=== PATIENT | male | born 1950 | race Caucasian/White ===

== ENCOUNTER → 2018-11-20 12:42 | Outpatient (BNVA) | payer MEDICARE, SELFPAY | PROVIDERS: Referring Provider Family Medicine; Visit Provider Nurse Practitioner Gerontology | DX: R39.12 Poor urinary stream; R39.11 Hesitancy of micturition; N40.3 Nodular prostate with lower urinary tract symptoms; R97.20 Elevated prostate specific antigen [PSA] | CPT/HCPCS: 99204 ==

== ENCOUNTER 2020-12-31 07:25 | Day surgery (SDC) | payer MEDICARE, SELFPAY ==
--- NOTE | 2020-12-31 06:17 | W.ANESPRE ---
General Info Date of Service Date Performed: 12/31/20 Height: 5 ft 10.5 in Weight: 84.368 kg Body Mass Index (BMI): 26.3 Surgical Procedure: Operation Date: 12/31/20 09:40 Proposed Procedures Side Surgeon p Cataract Extraction with IOL Implant Left Raul Glasgow MD Meds Allergies and Home Medications Allergies Allergy/AdvReac Type Severity Reaction Status Date / Time cyclobenzaprine AdvReac urinary Verified 12/31/20 07:46 [From Flexeril] retention per [facility] note Home Medication Medication Instructions Recorded albuterol sulfate 90 mcg/actuation 1 puff IH Q6H PRN 11/20/18 aerosol inhaler atorvastatin 10 mg tablet 10 mg PO DAILY 11/20/18 finasteride 5 mg PO DAILY 12/28/20 tamsulosin 0.8 mg PO PC 12/28/20 Current Visit Medications: Current Medications Generic Name Dose Route Start Last Admin Trade Name Freq PRN Reason Stop Dose Admin Acetaminophen 1,000 mg 12/31/20 06:00 Acetaminophen 500 Mg Tab PO Q4H PRN PRN Miscellaneous Medication 0 ml 12/31/20 06:00 Prednisolone 1%, Moxifloxacin 0.5%, Nepafenac 0.1% 5ml Btl OS DIRECTED [facility] Miscellaneous Medication 0 ml 12/31/20 06:00 Tropicam./Phenyleph. (1/2.5%) 5 Ml Btl OS DIRECTED [facility] Tetracaine HCl 0 ml 12/31/20 06:00 Tetracaine 0.5% 4 Ml Btl OS DIRECTED [facility] Active Problems Active Problems: Problem Status Onset Code Posterior subcapsular age-related cataract of left eye H25.042 Cortical cataract of left eye H26.9 Nuclear sclerotic cataract of left eye H25.12 BPH loc w urin obs/LUTS N40.1 Elevated PSA R97.20 Medical History Medical History Allergic rhinitis Bilateral inguinal hernia BPH (benign prostatic hyperplasia) [place] lesion of lung COPD (chronic obstructive pulmonary disease) Diffuse spasm of esophagus Edema GERD (gastroesophageal reflux disease) Headache Hx of fracture of clavicle per pt. has metal plate in place Hyperlipemia Lumbosacral radiculopathy Nicotine dependence Plantar fasciitis Primary osteoarthritis of ankle Retention of urine Varicose veins of lower extremity Surgical History Surgical History Hx of hernia repair Tobacco Smoking/Tobacco Use Status: Former Tobacco Use Alcohol Alcohol Intake: never Substance Use Substance use type: does not use Vital Signs and Lab Results Lab Results Blood Type / Crossmatch: No Data to Display Complete Blood Count: No Data to Display Complete Metabolic Panel: No Data to Display Liver Function Panel: No Data to Display Coagulation Panel: No Data to Display Cardiac Panel: No Data to Display Arterial Blood Gas: No Data to Display Venous Blood Gas: No Data to Display Pancreas Panel: No Data to Display Thyroid Panel: No Data to Display Infectious Disease: No Data to Display Blood Cultures: No Data to Display Toxicology Panel: No Data to Display Anesthesia Assessment and Plan Anesthesia History Personal History: No History of Anesthesia Complications Family History: No Family History of Anesthesia Complications Exercise Tolerance Exercise Tolerance: Metabolic Equivalents>4 Cardiac & Pulmonary Exam Cardiac Exam: Normal S1/S2 Heart Sounds Pulmonary Exam: Clear Bilateral Breath Sounds Airway Exam Known Difficult Airway: No Mallampati Class: 3 Mouth Opening: Normal (> 3cm) Thyromental Distance: Greater than 3 cm Neck Range of Motion: Limited ROM Neck Circumference: Normal Teeth Condition: Normal Dentition ASA Classification ASA Score: ASA 2 Emergency Case?: No NPO Status NPO Status: NPO Clears >2 hours, Solids >8 hours Anesthesia Plan Resuscitation Status: Full Code Anesthesia Technique: MAC Anesthesia Airway Planned: Natural Airway Monitors Used: Standard Monitors Preoperative Comments:: Discussed mko vs no mko. Would like no mko.
[2020-12-31] MEDS: Tropicam./Phenyleph. (1/2.5%) 5 ML BTL OS ×3 (07:42→07:55)
[2020-12-31 07:48] VITALS: BP 117/76; PULSE 60; RESP 20; TEMP 36.4; O2SAT 97
[2020-12-31 07:57] VITALS: BMI 26.3
[2020-12-31] MEDS: Povidone-Iodine Ophth 30 ML BTL (08:40)
[2020-12-31] MEDS: Lidocaine 2% Jelly 6 ML SYR (08:42)
[2020-12-31] MEDS: Lidocaine 1% Pres-Free 5 ML VIAL (08:43)
[2020-12-31] MEDS: Duovisc Viscoelastic System EACH 1 EACH (08:44)
[2020-12-31] MEDS: Balanced Salt Soln.-PLUS 500 ML BAG (08:44)
[2020-12-31] MEDS: Tetracaine 0.5% 4 ML BTL OS (08:44)
[2020-12-31] MEDS: Trypan Blue 0.06% 0.5 ML SYR (08:46)
[2020-12-31 09:16] VITALS: BP 125/64; PULSE 64; RESP 16; TEMP 36.2; O2SAT 97
--- NOTE | 2020-12-31 09:18 | W.PM.DSUDISC ---
Discharge Plan Disposition Patient Disposition: HOME Condition: Good Discharge Details Reason For Visit: CATARACT Attending Provider: Raul Glasgow Primary Care Provider: Zena Steiner Home Meds and New Rx's Prescriptions: No Action albuterol sulfate [ProAir HFA] 90 mcg/actuation HFA aerosol inhaler 1 puff IH Q6H PRNRF: 0 atorvastatin 10 mg tablet 10 mg PO DAILY RF: 0 tamsulosin 0.4 mg capsule 0.8 mg PO PC RF: 0 finasteride 5 mg tablet 5 mg PO DAILY RF: 0 Discharge Instructions Stand Alone Forms: Post-op Topical Cataract, Oli Vaughn (DSU) Discharge Orders Discharge Orders: Discharge Order (Routine); Ordered 12/31/20 Ordered By: Raul Glasgow DS: Diagnosis Discharge Diagnosis (1) Posterior subcapsular age-related cataract of left eye: Status: Resolved (2) Cortical cataract of left eye: Status: Resolved (3) Nuclear sclerotic cataract of left eye: Status: Resolved
--- NOTE | 2020-12-31 09:19 | ROE_ITS ---
Date of service: 12/31/20 Time of Service: 09:19 Operative Note Operative Note DATE OF PROCEDURE: 12/31/20 PRE-OP DIAGNOSIS: Nuclear/cortical/posterior subcapsular cataract, left eye Poorly dilating pupil, left eye Poor red reflex, left eye PROCEDURE: Cataract extraction using phacoemulsification with intraocular lens implant, left eye, with pupillary dilation using Malyugin Ring and capsular staining using Vision Blue SURGEON: Raul Glasgow ANESTHESIA TYPE: Local By Surgeon and MAC Refer to Anesthesia Record ESTIMATED BLOOD LOSS: 0 PATHOLOGY: none sent COMPLICATIONS: None Patient was transported to: same day Patient's condition: stable Implants: Eliseo and Eliseo / [employer] Tecnis [id number] Indications: Progressive decreased vision due to cataract, left eye Procedure Description: CATARACT SURGERY OPERATIVE REPORT PREOPERATIVE DIAGNOSIS: 1. Nuclear/cortical/posterior subcapsular cataract, left eye 2. Poorly dilating pupil, left eye 3. Poor red reflex, left eye POSTOPERATIVE DIAGNOSIS: Same OPERATION: 1. Cataract extraction using phacoemulsification with posterior chamber intraocular lens implant, left eye. 2. Pupillary dilation and iris stabilization using Malyugin Ring 3. Capsular staining with VIsion Blue IOL: IOL Front Office Attendant/Model: Eliseo & Eliseo / ESTEBAN Tecnis [id number] IOL Power: + 22.0 diopters IOL Serial Number: [id number] Optic Diameter: 6.0mm Haptic/Overall Diameter: 13.0mm PHACO INFO: Jason [employer]urion Vision System with OZil and Active Fluidics Cumulative Dispersed Energy (CDE): 12.50 seconds SURGEON: Raul Glasgow MD, LAKSHMI ANESTHESIA: Monitored Anesthesia Care (MAC), with local sub-tenon's anesthetic infiltration COMPLICATIONS: None SPECIMENS: None INDICATIONS FOR PROCEDURE: The patient is a 70-year-old gentleman with history of diminished visual acuity in his left eye. He is noted to have a rather dense nuclear/cortical/posterior subcapsular cataract with visual acuity of 2400. The option of cataract surgery was offered to the patient and he felt he was symptomatic enough that he wished to proceed. PROCEDURE: The correct surgical eye was identified and marked as the left eye and the pupil was dilated in the preoperative area using mydriatics, cyc loplegics, and NSAIDS (except in aspirin allergic patients). The dilated pupil size was 5.0 mm. He elected to proceed without oral sedation. The patient was brought to the operating room where cardiopulmonary monitoring was instituted and surgical time-out was performed, confirming the correct operative eye and IOL power. Topical anesthesia was administered and ophthalmic povidone-iodine 5% was instilled into the conjunctival fornices. Lidocaine gel was applied to the cornea and the lisandra-ocular area was prepped with Betadine 10% solution and draped in the usual sterile fashion for intraocular surgery, including an aperture drape. A Tegaderm transparent film dressing was cut in half and used to cover the lashes and lid margins. Care was taken to sequester the lashes and lid margins under the Tegaderm dressing. A lid speculum was placed between the lids of the operative eye and the Kierra-Gretchen operating microscope was maneuvered into position. Jackelyn scissors were then used to make a conjunctival buttonhole approximately 6mm posterior to the limbus in the inferonasal quadrant. Blunt dissection was carried out to expose bare sclera, and a blunt-tipped sub-tenon?s anesthesia cannula was introduced and passed posteriorly along the globe where non- preserved plain lidocaine was injected into posterior sub-Tenon?s space. A sideport knife was used to make a paracentesis port superiorly/superiortemporally. Intraocular phenylephrine/lidocaine was injected into the anterior chamber. Air was then injected into anterior chamber, followed by Vision Blue, which was painted over the anterior capsule and then irrigated out with BSS. The anterior chamber was then filled with viscoelastic. A 2.4mm keratome knife was used to create a half-thickness groove at the limbus and then to construct a three-plane near-clear corneal tunnel extending 2.0mm into clear cornea temporally. A 7.0 mm Malyugin Ring was then inserted into the pupillary space and engaged with the Kuglen hook. A flap was raised on the anterior capsule and capsulorhexis forceps were used to complete a continuous curvilinear capsulorhexis of 5.0 mm. Balanced salt solution was then used to perform cortical cleaving hydrodissection and nuclear hydrodelineation until the lens could be freely rotated within the capsular bag. The lens nucleus was then disassembled and removed within the capsular bag and iris plane using phacoemulsification. Residual cortical material was removed using the 45-degree angled silicone I/A tip with 0.3mm port. The posterior capsule was carefully polished to remove as much residual lens epithelial cells as safely possible. The capsular bag was then inflated and the anterior chamber deepened with viscoelastic. The lens implant described above was inserted into the capsular bag using the [employer] [place] Injector. A Kuglen hook was used to dial the IOL into position. The Malyugin Ring was removed in the reverse order of its insertion. Residual viscoelastic was then removed first from posterior to the IOL, then from the anterior chamber using the I/A handpiece. The lens implant was noted to center nicely within the capsular bag. The incisions were stromally hydrated, and the anterior chamber was reformed using BSS. Then 0.5cc of moxifloxacin 1.0mg/ml were injected into the capsular bag and anterior chamber. The incisions were checked with a Weck spear and found to be secure. Several drops of ophthalmic povidone-iodine 5% were then applied to the eye followed by two drops of Imprimis combination prednisolone/moxifloxacin/nepafenac solution. The drapes were removed and a clear plastic protective eye shield was placed over the eye. The patient was then returned to Same Day Surgery in stable condition.
--- NOTE | 2020-12-31 09:22 | W.ANESPOSTOP ---
Postoperative Evaluation Date, Time and Location Date Performed: 12/31/20 Time Performed: 09:32 Patient Location: Day Surgery Unit Vital Signs Most Recent Imported Vital Signs: Most Recent Vital Signs Temp Pulse Resp BP Pulse Ox 36.2 C L 64 16 125/64 97 12/31/20 09:16 12/31/20 09:16 12/31/20 09:16 12/31/20 09:16 12/31/20 09:16 Temp Pulse Resp BP Pulse Ox 36.4 C L 60 20 117/76 97 12/31/20 07:48 12/31/20 07:48 12/31/20 07:48 12/31/20 07:48 12/31/20 07:48 Pain Score Most Recent Pain Score: Most Recent Pain Score Pain Level 0 12/31/20 07:48 Assessment Mental Status: Awake (Alert & Oriented to Patient Baseline) Airway and Respiratory Function: Patent airway with normal (patient baseline) respiratory exam Cardiovascular Function: Hemodynamically Stable Hydration Status: Adequately Hydrated Nausea & Vomiting: No Nausea or Vomiting Pain: Pt. Denies Any Pain Peripheral Nerve Block: Patient did not receive a nerve block
== END 2020-12-31 09:35 | disposition home or self-care (01) ==
PROVIDERS: PCP Nurse Practitioner Family; Visit Provider Ophthalmology
PROC: (CPT 66982; principal; 2020-12-31 09:30)
DX: H25.042 Posterior subcapsular polar age-related cataract, left eye (principal); H57.03 Miosis
CPT/HCPCS: 66982; V2632

== ENCOUNTER 2021-01-14 09:20 | Day surgery (SDC) | payer MEDICARE, SELFPAY ==
[2021-01-14 09:30] VITALS: BP 127/75; PULSE 54; RESP 17; TEMP 36.6; O2SAT 98
[2021-01-14] MEDS: Tropicam./Phenyleph. (1/2.5%) 5 ML BTL OD ×3 (09:47→09:56)
--- NOTE | 2021-01-14 10:02 | W.ANESPRE ---
General Info Date of Service Date Performed: 01/14/21 Height: 5 ft 10.5 in Weight: 85.2 kg Body Mass Index (BMI): 26.5 Surgical Procedure: Operation Date: 01/14/21 11:25 Proposed Procedures Side Surgeon p Cataract Extraction with IOL Implant Right Raul Glasgow MD Meds Allergies and Home Medications Allergies Allergy/AdvReac Type Severity Reaction Status Date / Time cyclobenzaprine AdvReac urinary Verified 01/14/21 09:37 [From Flexeril] retention per [facility] note Home Medication Medication Instructions Recorded albuterol sulfate 90 mcg/actuation 1 puff IH Q6H PRN 11/20/18 aerosol inhaler atorvastatin 10 mg tablet 10 mg PO DAILY 11/20/18 finasteride 5 mg PO DAILY 12/28/20 tamsulosin 0.8 mg PO PC 12/28/20 Current Visit Medications: Current Medications Generic Name Dose Route Start Last Admin Trade Name Freq PRN Reason Stop Dose Admin Acetaminophen 1,000 mg 01/14/21 06:00 Acetaminophen 500 Mg Tab PO Q4H PRN PRN Miscellaneous Medication 0 ml 01/14/21 06:00 Prednisolone 1%, Moxifloxacin 0.5%, Nepafenac 0.1% 5ml Btl OD DIRECTED [facility] Miscellaneous Medication 0 ml 01/14/21 06:00 01/14/21 09:56 Tropicam./Phenyleph. (1/2.5%) 5 Ml Btl OD 1 drp DIRECTED [facility] Administration Tetracaine HCl 0 ml 01/14/21 06:00 Tetracaine 0.5% 4 Ml Btl OD DIRECTED [facility] PFS Active Problems Active Problems: Problem Status Onset Code Cortical cataract of right eye H26.9 Nuclear sclerotic cataract of right eye H25.11 BPH loc w urin obs/LUTS N40.1 Elevated PSA R97.20 Nuclear sclerotic cataract of left eye H25.12 Cortical cataract of left eye H26.9 Posterior subcapsular age-related cataract of left eye H25.042 Medical History Medical History Allergic rhinitis Bilateral inguinal hernia BPH (benign prostatic hyperplasia) [place] lesion of lung COPD (chronic obstructive pulmonary disease) Diffuse spasm of esophagus Edema GERD (gastroesophageal reflux disease) Headache Hx of fracture of clavicle per pt. has metal plate in place Hyperlipemia Lumbosacral radiculopathy Nicotine dependence Plantar fasciitis Primary osteoarthritis of ankle Retention of urine Varicose veins of lower extremity Surgical History Surgical History History of cataract surgery Hx of hernia repair Tobacco Smoking/Tobacco Use Status: Former Tobacco Use Alcohol Alcohol Intake: never Substance Use Substance use type: does not use Vital Signs and Lab Results Vital Signs Most Recent Vital Signs in EMR: Most Recent Vital Signs Temp Pulse Resp BP Pulse Ox 36.6 C 54 L 17 127/75 98 01/14/21 09:30 01/14/21 09:30 01/14/21 09:30 01/14/21 09:30 01/14/21 09:30 Lab Results Blood Type / Crossmatch: No Data to Display Complete Blood Count: No Data to Display Complete Metabolic Panel: No Data to Display Liver Function Panel: No Data to Display Coagulation Panel: No Data to Display Cardiac Panel: No Data to Display Arterial Blood Gas: No Data to Display Venous Blood Gas: No Data to Display Pancreas Panel: No Data to Display Thyroid Panel: No Data to Display Infectious Disease: No Data to Display Blood Cultures: No Data to Display Toxicology Panel: No Data to Display Anesthesia Assessment and Plan Anesthesia History Personal History: No History of Anesthesia Complications Family History: No Family History of Anesthesia Complications Exercise Tolerance Exercise Tolerance: Metabolic Equivalents>4 Pertinent Negatives Pertinent Negatives: No Symptoms of GERD, No Major Cardiovascular Symptoms or Complaints, No Major Pulmonary Symptoms or Complaints and No History of CVA/TIA Cardiac & Pulmonary Exam Cardiac Exam: Normal S1/S2 Heart Sounds Pulmonary Exam: Clear Bilateral Breath Sounds Airway Exam Known Difficult Airway: No Mallampati Class: 3 Mouth Opening: Normal (> 3cm) Thyromental Distance: Greater than 3 cm Neck Range of Motion: Limited ROM Neck Circumference: Normal Teeth Condition: Normal Dentition ASA Classification ASA Score: ASA 2 Emergency Case?: No NPO Status NPO Status: NPO Clears >2 hours, Solids >8 hours Anesthesia Plan Resuscitation Status: Full Code Anesthesia Technique: MAC Anesthesia Airway Planned: Natural Airway Monitors Used: Standard Monitors
[2021-01-14 10:03] VITALS: BMI 26.5
[2021-01-14] MEDS: Tetracaine 0.5% 4 ML BTL OD (11:03)
[2021-01-14] MEDS: Balanced Salt Soln.-PLUS 500 ML BAG (11:03)
[2021-01-14] MEDS: Duovisc Viscoelastic System EACH 1 EACH (11:04)
[2021-01-14] MEDS: Lidocaine 1% Pres-Free 5 ML VIAL (11:04)
[2021-01-14] MEDS: Lidocaine 2% Jelly 6 ML SYR (11:05)
[2021-01-14] MEDS: Povidone-Iodine Ophth 30 ML BTL (11:06)
--- NOTE | 2021-01-14 11:26 | W.PM.DSUDISC ---
Discharge Plan Disposition Patient Disposition: HOME Condition: Good Discharge Details Attending Provider: Raul Glasgow Primary Care Provider: Zena Steiner Home Meds and New Rx's Prescriptions: No Action albuterol sulfate [ProAir HFA] 90 mcg/actuation HFA aerosol inhaler 1 puff IH Q6H PRNRF: 0 atorvastatin 10 mg tablet 10 mg PO DAILY RF: 0 tamsulosin 0.4 mg capsule 0.8 mg PO PC RF: 0 finasteride 5 mg tablet 5 mg PO DAILY RF: 0 Discharge Instructions Stand Alone Forms: Post-op Topical Cataract, Oli Vaughn (DSU) Discharge Orders Discharge Orders: Discharge Order (Routine); Ordered 01/14/21 Ordered By: Raul Glasgow DS: Diagnosis Discharge Diagnosis (1) Cortical cataract of right eye: Status: Resolved (2) Nuclear sclerotic cataract of right eye: Status: Resolved
--- NOTE | 2021-01-14 11:27 | W.PM.OP ---
Date of service: 01/14/21 Time of Service: 11:27 Operative Note Operative Note DATE OF PROCEDURE: 01/14/21 PRE-OP DIAGNOSIS: Nuclear/cortical cataract, right eye POST-OP DIAGNOSIS: same PROCEDURE: Cataract extraction using phacoemulsification with intraocular lens implant, right eye SURGEON: Raul Glasgow ANESTHESIA TYPE: Local By Surgeon and MAC Refer to Anesthesia Record ESTIMATED BLOOD LOSS: 0 PATHOLOGY: none sent COMPLICATIONS: None Patient was transported to: same day Patient's condition: stable Implants: Eliseo and Eliseo Vision / [employer] Tecnis [id number] intraocular lens Indications: Progressive decreased vision due to cataract, right eye Procedure Description: CATARACT SURGERY OPERATIVE REPORT PREOPERATIVE DIAGNOSIS: Nuclear/cortical cataract, right eye POSTOPERATIVE DIAGNOSIS: Same OPERATION: Cataract extraction using phacoemulsification with posterior chamber intraocular lens implant, right eye. IOL: IOL Enrollment Advisor/Model: [employer] Vision / ESTEBAN Tecnis ZCB00 IOL Power: + 22.0 diopters IOL Serial Number: [id number] Optic Diameter: 6.0mm Haptic/Overall Diameter: 13.0mm PHACO INFO: Jason Kimbiaurion Vision System with OZil and Active Fluidics Cumulative Dispersed Energy (CDE): 6.74 seconds SURGEON: Raul Glasgow MD, LAKSHMI ANESTHESIA: Monitored Anesthesia Care (MAC), with local sub-tenon's anesthetic infiltration COMPLICATIONS: None SPECIMENS: None INDICATIONS FOR PROCEDURE: The patient is a 70-year-old gentleman with history of diminished visual acuity in both eyes secondary to the development of bilateral cataracts. He has already undergone cataract surgery in the left eye and is doing well postoperatively. He now presents for cataract surgery in the right eye. PROCEDURE: The correct surgical eye was identified and marked as the right eye and the pupil was dilated in the preoperative area using mydriatics and cycloplegics. The dilated pupil size was 6.0 mm. Oral sedation was administered in the form of an Imprimis MKO Melt (midazolam 3mg/ketamine 25mg/ondansetron 2mg). The patient was brought to the operating room where cardiopulmonary monitoring was instituted and surgical time-out was performed, confirming the correct operative eye and IOL power. Topical anesthesia was administered and ophthalmic povidone-iodine 5% was instilled into the conjunctival fornices. Lidocaine gel was applied to the cornea and the lisandra-ocular area was prepped with Betadine 10% solution and draped in the usual sterile fashion for intraocular surgery, including an aperture drape. A Tegaderm transparent film dressing was cut in half and used to cover the lashes and lid margins. Care was taken to sequester the lashes and lid margins under the Tegaderm dressing. A lid speculum was placed between the lids of the operative eye and the Kierra-Gretchen operating microscope was maneuvered into position. Jackelyn scissors were then used to make a conjunctival buttonhole approximately 6mm posterior to the limbus in the inferonasal quadrant. Blunt dissection was carried out to expose bare sclera, and a blunt-tipped sub-tenon?s anesthesia cannula was introduced and passed posteriorly along the globe where non-preserved plain lidocaine was injected into posterior sub-Tenon?s space. A sideport knife was used to make a paracentesis port inferiortemporally. Intraocular phenylephrine/lidocaine was injected into the anterior chamber. The anterior chamber was then filled with viscoelastic. A 2.4mm keratome knife was used to create a half-thickness groove at the limbus and then to construct a three-plane near-clear corneal tunnel extending 2.0mm into clear cornea in the superiortemporal position. . A flap was raised on the anterior capsule and capsulorhexis forceps were used to complete a continuous curvilinear capsulorhexis of 5.5 mm. Balanced salt solution was then used to perform cortical cleaving hydrodissection and nuclear hydrodelineation until the lens could be freely rotated within the capsular bag. The lens nucleus was then disassembled and removed within the capsular bag and iris plane using phacoemulsification. Residual cortical material was removed using the I/A handpiece. The posterior capsule was carefully polished to remove as much residual lens epithelial cells as safely possible. The capsular bag was then inflated and the anterior chamber deepened with viscoelastic. The lens implant described above was inserted into the capsular bag using the ESTEBAN [place] Injector. A Kuglen hook was used to dial the IOL into position. Residual viscoelastic was then removed first from posterior to the IOL, then from the anterior chamber using the I/A handpiece. The lens implant was noted to center nicely within the capsular bag. The incisions were stromally hydrated, and the anterior chamber was reformed using BSS. Then 0.5cc of moxifloxacin 1.0mg/ml were injected into the capsular bag and anterior chamber. The incisions were checked with a Weck spear and found to be secure. Several drops of ophthalmic povidone-iodine 5% were then applied to the eye followed by two drops of Imprimis combination prednisolone/moxifloxacin/nepafenac solution. The drapes were removed and a clear plastic protective eye shield was placed over the eye. The patient was then returned to Same Day Surgery in stable condition.
[2021-01-14 11:32] VITALS: BP 120/77; PULSE 60; RESP 16; TEMP 36.3; O2SAT 97
--- NOTE | 2021-01-14 11:33 | W.ANESPOSTOP ---
Postoperative Evaluation Date, Time and Location Date Performed: 01/14/21 Time Performed: 11:34 Patient Location: Day Surgery Unit Vital Signs Most Recent Imported Vital Signs: Most Recent Vital Signs Temp Pulse Resp BP Pulse Ox 36.3 C L 60 16 120/77 97 01/14/21 11:32 01/14/21 11:32 01/14/21 11:32 01/14/21 11:32 01/14/21 11:32 Assessment Mental Status: Awake (Alert & Oriented to Patient Baseline) Airway and Respiratory Function: Patent airway with normal (patient baseline) respiratory exam Cardiovascular Function: Hemodynamically Stable Hydration Status: Adequately Hydrated Nausea & Vomiting: No Nausea or Vomiting Pain: Pt. Denies Any Pain Peripheral Nerve Block: Patient did not receive a nerve block
== END 2021-01-14 11:51 | disposition home or self-care (01) ==
PROVIDERS: PCP Nurse Practitioner Family; Visit Provider Ophthalmology
PROC: (CPT 66984; principal; 2021-01-14 11:15)
DX: H25.11 Age-related nuclear cataract, right eye (principal); J44.9 Chronic obstructive pulmonary disease, unspecified; E78.5 Hyperlipidemia, unspecified; F17.210 Nicotine dependence, cigarettes, uncomplicated
CPT/HCPCS: 66984; V2632